=== PATIENT | female | born 1995 | race Caucasian/White ===

== ENCOUNTER 2016-06-23 07:35 | Day surgery (SDC) | payer OTHER ==
[~2016-06-23] VITALS: Ht 172.7 cm; Wt 84.4 kg
[~2016-06-23 07:35] MED LIST: PRILOSEC20 MG PO; PROBIOTIC ACID1 EAC3 PO; SUPER B-50 COM1 EACH PO; VENTOLIN HFA18 GM IH; VIBRAMYCIN100 MG PO; VITAMIN D31000 UNIT PO; ZANTAC150 MG PO; ZYRTEC10 M3 PO
[2016-06-23 08:09] VITALS: BP 118/68
[2016-06-23] MEDS ORDERED: IBUPROFEN800 MG PO (10:15)
[2016-06-23 11:35] VITALS: BP 131/78
[2016-06-23 12:18] VITALS: BP 120/80
== END 2016-06-23 12:20 | disposition home or self-care (01) ==
LOC: SDC 07:35
PROC: 0UBK7ZZ Excision of Hymen, Via Natural or Artificial Opening (ICD-10-PCS; principal; 2016-06-23)
DX: Q52.3 Imperforate hymen (principal); Z82.49 Family history of ischemic heart disease and other diseases of the circulatory system; Z80.3 Family history of malignant neoplasm of breast; Z82.5 Family history of asthma and other chronic lower respiratory diseases; Z81.8 Family history of other mental and behavioral disorders
CPT/HCPCS: 88304; J1170; J1885; J2250; J2405; J3010